=== PATIENT | female | born 1955 | race Caucasian/White ===

== ENCOUNTER 2018-12-14 08:07 | Outpatient (CLI) | payer BC ==
[~2018-12-14] VITALS: Ht 170.2 cm; Wt 79.1 kg
[2018-12-14 08:47] LABS: CALC OSMOLALITY 286 mosm/kg (275-300); CALCIUM 8.9 mg/dL (8.5-10.1); CARBON DIOXIDE 26.5 mmol/L (21.0-32.0); CHLORIDE - SERUM 106 mmol/L (98-107); CREATININE - SERUM 0.7 mg/dL (0.6-1.3); GLUCOSE 201 mg/dL (74-106); POTASSIUM - SERUM 4.2 mmol/L (3.5-5.1); SODIUM 140 mmol/L (136-145); UREA NITROGEN 18 mg/dL (7-18); eGFR NON AFRICAN AMERICAN 90 mL/min (90-120)
[2018-12-14 08:48] LABS: BASOPHILS 0.5 % (0-2); EOSINOPHILS 4.8 % (0-7); HEMATOCRIT 44.5 % (36.0-48.0); HEMOGLOBIN 15.3 g/dL (12-16); IMMATURE GRANULOCYTES 0.2 % (0-5); LYMPHOCYTES 33.5 % (15-50); MCH 27.9 pg (26.0-34.0); MCHC 34.4 g/dL (31.0-37.0); MCV 81.2 fL (80.0-100.0); MEAN PLATELET VOLUME 8.7 fL (7.4-10.4); MONOCYTES 9.4 % (2-11); NEUTROPHILS 51.6 % (40-80); PLATELET COUNT 204 10x3/uL (130-400); RBC 5.48 10x6/uL (4.00-5.40); RDW 14.7 % (11.5-14.5); WBC 8.3 10x3/uL (4.8-10.8)
[2018-12-14 08:54] LABS: APTT 25.1 SECONDS (22.8-39.4); INR 0.93 (0.85-1.17)
[2018-12-14] MEDS ORDERED: EFFEXOR75 MG PO (09:31)
[2018-12-14] MEDS ORDERED: ZESTRIL20 MG PO (09:31)
[2018-12-14] MEDS ORDERED: CRESTOR20 MG PO (09:31)
[2018-12-14] MEDS ORDERED: GLUCOPHAGE500 MG PO (09:32)
[2018-12-14] MEDS ORDERED: ASPIRIN81 MG PO (09:32)
[2018-12-14] MEDS ORDERED: TAPAZOLE 5 MG TA5 MG PO (09:33)
[2018-12-14] MEDS ORDERED: NORVASC5 MG PO (09:34)
[2018-12-14] MEDS ORDERED: NOVOLIN 70/30 110 ML SC (09:34)
[2018-12-14 09:45] VITALS: BP 128/75; Ht 170.2 cm; Wt 79.1 kg
--- NOTE | 2018-12-14 11:13 | NUR ---
1100 SEE POST PROCEDURE CHECKLIST FOR VITAL SIGN TRENDS.
--- NOTE | 2018-12-14 11:26 | NUR ---
1115 NO BLEEDING NOR HEMATOMA ON DRESSING SITE. DRINKING COFFEE. A CALL PLACED TO DR. WALTERS FOR POST ORDERS. 1125 ADA DIET SERVED.
--- NOTE | 2018-12-14 11:43 | NUR ---
1130 DR. WALTERS RETURNED CALLCHRISTOPHER'D RELEASE AT NOON FOR PT.
--- NOTE | 2018-12-14 11:45 | NUR ---
1145 NO BLEEDING NOR HEMATOMA. ATE 100% DIET.
== END 2018-12-14 12:03 | disposition home or self-care (01) ==
LOC: D.SP 08:07 → D.CT 10:00 → D.SP 12:03
PROVIDERS: Specialist; ATTEND Internal Medicine Hematology & Oncology
DX: D75.1 Secondary polycythemia (principal); Z01.812 Encounter for preprocedural laboratory examination